=== PATIENT | female | born 1990 | race Hispanic/Latino ===

== ENCOUNTER 2018-04-28 23:49 | Emergency (ER) | payer BC ==
[2018-04-29 00:10] VITALS: BMI 27.2
[2018-04-29] MEDS ORDERED: Sodium Chloride 0.9% 1,000 ML IV STA (00:35)
--- NOTE | 2018-04-29 01:02 | ED PDOC ---
Arrival/HPI - General Chief Complaint: Syncope Time Seen by Provider: 04/29/18 00:18 Historian: Patient - History of Present Illness Narrative History of Present Illness (Text): 04/29/18 00:47 28 year old female, with no significant past medical history, presents to the emergency department for syncopal episode 35 minutes prior to arrival. Patient was smoking marijuana 20 minutes before syncopal episode from the same batch. Patient states she felt dizzy and began to lose hearing before she passed out and fell injuring her chin. Patient states she was fine earlier today. She states she got her menstrual period today. Patient denies any history of blood clots or anemia. Patient denies any fever, chills, chest pain, shortness of breath, nausea, vomiting, diarrhea, urinary symptoms, back pain, neck pain, headache, or any other complaints. Time/Duration: 1/2 hour Symptom Onset: Sudden Activities at Onset: Light Context: Home Past Medical History - Provider Review Nursing Documentation Reviewed: Yes - Infectious Disease Hx of Infectious Diseases: None - Tetanus Immunization Tetanus Immunization: Unknown - Past Medical History Past Medical History: No Previous - Psychiatric Hx Depression: No Hx Emotional Abuse: No Hx Physical Abuse: No Hx Substance Use: Yes - Surgical History Hx Section: Yes (x3) - Anesthesia Hx Anesthesia: Yes Hx Anesthesia Reactions: No - Suicidal Assessment Feels Threatened In Home Enviroment: No Family/Social History - Physician Review Nursing Documentation Reviewed: Yes Family/Social History: No Known Family HX Smoking Status: Light Smoker < 10 Cigarettes Daily Hx Alcohol Use: No Hx Substance Use: Yes Substance used: "weed" Hx Substance Use Treatment: No Allergies/Home Meds Allergies/Adverse Reactions: Allergies No Known Allergies Allergy (Verified 04/29/18 00:18) Home Medications: Home Meds Medication Instructions Recorded Confirmed RX: Vitamins6 [ 1 tab PO DAILY 12/11/13 12/11/13 Vitamins] Review of Systems - Physician Review All systems were reviewed & negative as marked: Yes - Review of Systems Constitutional: absent: Fevers, Other (Chills) ENT: Hearing Changes Respiratory: absent: SOB Cardiovascular: Syncope. absent: Chest Pain Gastrointestinal: absent: Diarrhea, Nausea, Vomiting Genitourinary Female: absent: Dysuria, Frequency, Hematuria Musculoskeletal: absent: Back Pain, Neck Pain Neurological: Dizziness. absent: Headache Physical Exam Vital Signs Reviewed: Yes Vital Signs Pulse Resp BP Pulse Ox 04/29/18 00:09 75 18 114/84 99 Blood Pressure: Normal Pulse: Regular Respiratory Rate: Normal Appearance: Positive for: Well-Appearing, Non-Toxic, Comfortable Pain Distress: None Mental Status: Positive for: Alert and Oriented X 3 Finger Stick Blood Glucose: 109 - Systems Exam Head: Present: Atraumatic, Normocephalic, Other (2.5 cm laceration to the chin) Pupils: Present: PERRL Extroacular Muscles: Present: EOMI Conjunctiva: Present: Normal Mouth: Present: Moist Mucous Membranes Neck: Present: Normal Range of Motion Respiratory/Chest: Present: Clear to Auscultation, Good Air Exchange. No: Respiratory Distress, Accessory Muscle Use Cardiovascular: Present: Regular Rate and Rhythm, Normal S1, S2. No: Murmurs Abdomen: No: Tenderness, Distention, Peritoneal Signs Back: Present: Normal Inspection Upper Extremity: Present: Normal Inspection. No: Cyanosis, Edema Lower Extremity: Present: Normal Inspection. No: Edema Neurological: Present: GCS=15, CN II-XII Intact, Speech Normal Skin: Present: Warm, Dry, Normal Color. No: Rashes Psychiatric: Present: Alert, Oriented x 3, Normal Insight, Normal Concentration Medical Decision Making ED Course and Treatment: 04/29/18 00:47 Impression: 28 year old female presents complaining of chin laceration s/p syncopal episode 35 minutes prior to arrival. Plan: -- Labs -- EKG -- Chest X-ray -- IV Fluids -- POC Urine Pregnacy Test -- Urinalysis -- Reassess and disposition Progress Notes: EKG shows NSR at 78 BPM with No STEMI, Flat T on Lead III. Interpreted by me. 04/29/18 02:07 Chest X-ray as read by me, unremarkable EKG as read by me, unremarkable Labs as read by me, unremarkable. No indication for admission per [place] syncope rule. Syncope episode likely due to marijuana use. Endorsed to patient to dc marijuana use. 04/29/18 02:21 PROCEDURE: LACERATION REPAIR Performed by the emergency provider Location: Chin Length: 2.5 cm Description: {"clean wound edges","no foreign bodies"} Distal CMS: Normal. No deficits. Neurovascularly intact. Anesthesia: Lidocaine 1% Preparation: The wound was cleaned with NS and [place]. The area was prepped and draped in the usual sterile fashion. Exploration: The wound was explored and no foreign bodies were found. Procedure: The wound was closed with 6.0 prolene nylon. There was good approximation. In total, 7 were used. Post-Procedure: Good closure and hemostasis. The patient tolerated the procedure well and there were no complications. CSM remains intact. Post procedure dressing applied. 05/01/18 23:54 - Lab Interpretations Lab Results: Lab Results 04/29/18 00:12: POC Glucose (mg/dL) 103 I have reviewed the lab results: Yes - RAD Interpretation Radiology Orders: 04/29/18 00:36 CHEST TWO VIEWS (PA/LAT) [RAD] Stat - EKG Interpretation Interpreted by ED Physician: Yes Type: 12 lead EKG - Medication Orders Current Medication Orders: Sodium Chloride (Sodium Chloride 0.9%) 1,000 mls @ 999 mls/hr IV .Q1H1M STA Stop: 04/29/18 01:35 - Scribe Statement The provider has reviewed the documentation as recorded by the Francine Lin Provider Scribe Attestation: All medical record entries made by the Scribe were at my direction and personally dictated by me. I have reviewed the chart and agree that the record accurately reflects my personal performance of the history, physical exam, medical decision making, and the department course for this patient. I have also personally directed, reviewed, and agree with the discharge instructions and disposition. Disposition/Present on Arrival - Present on Arrival Any Indicators Present on Arrival: No History of DVT/PE: No History of Uncontrolled Diabetes: No Urinary Catheter: No History of Decub. Ulcer: No History Surgical Site Infection Following: None - Disposition Have Diagnosis and Disposition been Completed?: Yes Diagnosis: Syncope, Chin laceration, Marijuana use Disposition: HOME/ ROUTINE Disposition Time: 02:42 Condition: GOOD Discharge Instructions (ExitCare): Syncope (Fainting), Laceration Repair, Marijuana, Syncope (ED) Additional Instructions: GO TO ED in 7-10 DAYS FOR SUTURE REMOVAL CYRIL SHIRLEY, thank you for letting us take care of you today. Your provider was Luis Alberto Wallace and you were treated for CHIN LACERATION. The emergency medical care you received today was directed at your acute symptoms. If you were prescribed any medication, please fill it and take as directed. It may take several days for your symptoms to resolve. Return to the Emergency Department if your symptoms worsen, do not improve, or if you have any other problems. Please contact your doctor or call one of the physicians/clinics you have been referred to that are listed on the Patient Visit Information form that is included in your discharge packet. Bring any paperwork you were given at discharge with you along with any medications you are taking to your follow up visit. Our treatment cannot replace ongoing medical care by a primary care provider outside of the emergency department. Thank you for allowing the [facility] team to be part of your care today. If you had an X-Ray or CT scan: A Radiologist will review the ED reading if any change in treatment is needed we will contact you. If you had a blood, urine, or wound culture: It will take several days for the results, if any change in treatment is needed we will contact you. If you had an STI test: It will take 48 hours for the results. Please call after 1 week if you have not heard back. Referrals: Fanta Reyna MD [Medical Doctor] - Follow up with primary [facility] [Outside] - Follow up with primary Forms: [employer] ([place])
[2018-04-29 01:12] LABS: BASO # 0.02 K/mm3 (0.0-2.0); BASO % 0.2 % (0.0-3.0); EOS # 0.2 (0.0-0.7); EOS % 2.6 % (1.5-5.0); GRAN # 6.7 (1.4-6.5); GRAN % 76.9 % (50.0-68.0); HEMOGLOBIN 12.9 g/dL (12.0-16.0); LYMPH # 1.3 (1.2-3.4); LYMPH % 14.7 % (22.0-35.0); MEAN CELL VOLUME 89.4 fl (80.0-105.0); MEAN CORPUSCULAR HEMOGLOBIN 30.3 pg (25.0-35.0); MEAN CORPUSCULAR HGB CONC 33.9 g/dl (31.0-37.0); MEAN PLATELET VOLUME 9.2 fl (7.0-11.0); MONO # 0.5 (0.1-0.6); MONO % 5.6 % (1.0-6.0); RBC 4.26 10^6/uL (3.5-6.1); RED CELL DISTRIBUTION WIDTH 12.8 % (11.5-14.5); WHITE BLOOD COUNT 8.7 10^3/ul (4.5-11.0)
[2018-04-29 01:15] LABS: ALB/GLOB RATIO 1.6 (1.1-1.8); ALBUMIN 4.3 g/dL (3.0-4.8); ALT/SGPT 35 U/L (7-56); AST/SGOT 32 U/L (14-36); BLOOD UREA NITROGEN 17 mg/dL (7-21); GFR NON-AFRICAN AMERICAN > 60
[2018-04-29 01:26] LABS: TROPONIN I < 0.01 ng/mL
[2018-04-29 02:51] VITALS: BP 118/85; PULSE 78; RESP 20; O2SAT 99
[2018-04-29 02:56] LABS: URINE BILIRUBIN NEGATIVE (NEGATIVE); URINE BLOOD MODERATE (NEGATIVE); URINE GLUCOSE (UA) NEGATIVE (NEGATIVE); URINE LEUKOCYTE ESTERASE NEGATIVE Leu/uL (NEGATIVE); URINE PROTEIN 100 mg/dL (<30 mg/dL); URINE UROBILINOGEN 0.2 E.U./dL (<1 E.U./dL)
[2018-04-29 02:58] LABS: URINE APPEARANCE SL CLOUDY (CLEAR); URINE COLOR YELLOW (YELLOW)
[2018-04-29 03:15] LABS: URINE BACTERIA OCC (NEG); URINE WBC 0 - 2 /hpf (0-6)
--- NOTE | 2018-04-29 10:36 | CARD ---
APPROVED REPORT Date of service: 04/29/2018 EKG Measurement Heart [id number] ID [id number] <Conclusion> Normal sinus rhythm Normal Electrocardiogram
--- NOTE | 2018-04-29 11:01 | RAD ---
Date of service: 04/29/2018 HISTORY: syncope COMPARISON: No prior. TECHNIQUE: Chest PA and lateral FINDINGS: LUNGS: No active pulmonary disease. PLEURA: No significant pleural effusion identified. No pneumothorax apparent. CARDIOVASCULAR: Normal. OSSEOUS STRUCTURES: No significant abnormalities. VISUALIZED UPPER ABDOMEN: Normal. OTHER FINDINGS: None. IMPRESSION: No active disease.
== END 2018-04-29 02:50 | disposition home or self-care (01) ==
LOC: ED 23:49
DX: S01.81XA Laceration without foreign body of other part of head, initial encounter (principal); W19.XXXA Unspecified fall, initial encounter; F12.90 Cannabis use, unspecified, uncomplicated; R55 Syncope and collapse; F17.210 Nicotine dependence, cigarettes, uncomplicated
CPT/HCPCS: 12011; 71046; 80053; 81001; 82948; 83735; 84443; 84484; 85025; 86850; 86900; 93005; 96360; 99285; J7030

== ENCOUNTER 2018-05-05 08:56 | Emergency (ER) | payer BC ==
[2018-05-05 09:46] VITALS: BMI 25.6
--- NOTE | 2018-05-05 09:53 | ED PDOC ---
Arrival/HPI - General Historian: Patient - History of Present Illness Narrative History of Present Illness (Text): 05/05/18 09:58 28yr old female presents today for suture removal. pt states 7 days ago she sustained laceration to chin. pt denies pain. denies fever/chills. no dizziness or weakness. no other complaints. <Fiona Palmer - Last Filed: 05/05/18 13:24> <Luis Alberto Wallace - Last Filed: 05/08/18 18:48> - General Time Seen by Provider: 05/05/18 09:43 Past Medical History - Provider Review Nursing Documentation Reviewed: Yes - Travel History Have you recently traveled outside [place] w/in the past 3 mons?: No - Infectious Disease Hx of Infectious Diseases: None - Past Medical History Past Medical History: No Previous - Psychiatric Hx Depression: No Hx Emotional Abuse: No Hx Physical Abuse: No Hx Substance Use: Yes - Surgical History Hx Section: Yes (x3) - Anesthesia Hx Anesthesia: Yes Hx Anesthesia Reactions: No - Suicidal Assessment Feels Threatened In Home Enviroment: No <Fiona Palmer - Last Filed: 05/05/18 13:24> Family/Social History - Physician Review Nursing Documentation Reviewed: Yes Family/Social History: Unknown Family HX Smoking Status: Light Smoker < 10 Cigarettes Daily Hx Alcohol Use: No Hx Substance Use: Yes Substance used: "weed" Hx Substance Use Treatment: No <Fiona Palmer - Last Filed: 05/05/18 13:24> Allergies/Home Meds <Fiona Palmer - Last Filed: 05/05/18 13:24> <Luis Alberto Wallace - Last Filed: 05/08/18 18:48> Allergies/Adverse Reactions: Allergies No Known Allergies Allergy (Verified 04/29/18 00:18) Home Medications: Home Meds Medication Instructions Recorded Confirmed RX: No Known Home Med 05/05/18 05/05/18 Review of Systems - Review of Systems Constitutional: absent: Fatigue, Fevers Eyes: absent: Vision Changes, Photophobia, Eye Pain Respiratory: absent: SOB, Cough Cardiovascular: absent: Chest Pain, Palpitations Gastrointestinal: absent: Abdominal Pain, Nausea, Vomiting Musculoskeletal: absent: Back Pain, Neck Pain Skin: Laceration Neurological: absent: Dizziness Psychiatric: absent: Anxiety, Depression <Fiona Palmer - Last Filed: 05/05/18 13:24> Physical Exam Vital Signs Reviewed: Yes Temperature: Afebrile Blood Pressure: Normal Pulse: Regular Respiratory Rate: Normal Appearance: Positive for: Well-Appearing, Non-Toxic, Comfortable Pain Distress: None Mental Status: Positive for: Alert and Oriented X 3 - Systems Exam Head: Present: Laceration (laceration to chin with [address]; no edema, no erythema; no ecchymosis; non tender. ) Mouth: Present: Moist Mucous Membranes Respiratory/Chest: Present: Clear to Auscultation Cardiovascular: Present: Regular Rate and Rhythm Neurological: Present: GCS=15 Skin: Present: Warm, Dry, Normal Color Psychiatric: Present: Alert, Oriented x 3 <Fiona Palmer - Last Filed: 05/05/18 13:24> Vital Signs Temp Pulse Resp BP Pulse Ox 05/05/18 09:55 97.8 F 72 18 104/69 97 <Luis Alberto Wallace - Last Filed: 05/08/18 18:48> Medical Decision Making ED Course and Treatment: 05/05/18 10:01 Patient is nontoxic well-appearing in no distress. Vital signs are stable. suture removal: 7 sutures removed Wound healing well without signs of infection I advised the patient to keep the wound clean and dry apply bacitracin twice daily and return if symptoms worsen persist or if new symptoms develop Patient verbalizes understanding of discharge instructions and need for immediate followup. all aspects of this case were discussed the attending of record. Impression: suture removal Keep the wound clean and dry Apply bacitracin twice daily Follow up with primary care physician within the next 2 days Return immediately if symptoms worsen persist or if new symptoms develop <Fiona Palmer - Last Filed: 05/05/18 13:24> - PA / [employer] / Resident Statement / has reviewed & agrees with the documentation as recorded. <Luis Alberto Wallace - Last Filed: 05/08/18 18:48> Disposition/Present on Arrival - Present on Arrival Any Indicators Present on Arrival: No History of DVT/PE: No History of Uncontrolled Diabetes: No Urinary Catheter: No History of Decub. Ulcer: No History Surgical Site Infection Following: None - Disposition Have Diagnosis and Disposition been Completed?: Yes Disposition Time: 09:53 Patient Plan: Discharge <Fiona Palmer - Last Filed: 05/05/18 13:24> <Luis Alberto Wallace - Last Filed: 05/08/18 18:48> - Disposition Diagnosis: Visit for suture removal Disposition: HOME/ ROUTINE Condition: GOOD Discharge Instructions (ExitCare): Stitches Removal Additional Instructions: Keep the wound clean and dry Apply bacitracin twice daily Follow up with primary care physician within the next 2 days Return immediately if symptoms worsen persist or if new symptoms develop Referrals: Fanta Reyna MD [Medical Doctor] - Follow up with primary [facility] [Outside] - Follow up with primary Forms: WORK NOTE, [facility] ([place])
[2018-05-05 09:58] VITALS: BP 104/69; PULSE 72; RESP 18; TEMP 97.8; O2SAT 97
== END 2018-05-05 10:07 | disposition home or self-care (01) ==
LOC: ED 08:56
DX: Z48.02 Encounter for removal of sutures (principal)